=== PATIENT | male | born 1995 | race Two or more races ===

== ENCOUNTER 2023-06-13 11:04 | Emergency (ER) | payer OTHER ==
[2023-06-13] MEDS: Lidocaine 1% 5 ML VIAL INJECT ONE (11:44)
[2023-06-13] MEDS: Diphtheria,Pertussis(Acell),Tetanus Vaccine 0.5 ML Syringe IM ONE (12:20)
[2023-06-13] MEDS: Bacitracin/Neomycin/Polymyxin B Oint 0.9 GM U/D Packet TOP ONE (12:20)
== END 2023-06-13 12:56 | disposition home or self-care (01) ==
LOC: LL.ED 11:04
DX: S68.624A Partial traumatic transphalangeal amputation of right ring finger, initial encounter (principal); Z23 Encounter for immunization; W23.0XXA Caught, crushed, jammed, or pinched between moving objects, initial encounter
CPT/HCPCS: 12002; 73140-F8; 90471; 90715; 99283; 99283-25; J3490